=== PATIENT | male | born 1985 | race Caucasian/White ===

== ENCOUNTER 2016-10-07 06:09 | Emergency (ER) | payer SELFPAY ==
[~2016-10-07] VITALS: Ht 188 cm; Wt 84.1 kg
[~2016-10-07 06:09] MED LIST: LORA-392 PO
[2016-10-07 06:14] VITALS: BP 140/91; PULSE 61; RESP 16; TEMP 97.8; O2SAT 99
[2016-10-07 06:23] VITALS: BP 140/91; PULSE 61; RESP 16; TEMP 97.8
[2016-10-07] MEDS ORDERED: BUPR8SUB SL (06:33)
--- NOTE | 2016-10-07 06:54 | PD ---
HPI Chief Complaint: Seizure Time Seen by Provider: 06:48 Travel History International Travel<30 days: No Contact w/Intl Traveler<30days: No Traveled to known affect area: No History of Present Illness HPI 30-year-old male presents to the emergency department by private transportation the care of his his significant other for evaluation of seizure. Patient with history of seizure disorder since the age of 21. Patient states he was never identified whether he had seizure onset they caused him to have a fall or a fall that caused him to have onset of seizure at age 21. Patient used to be on carbamazepine and Klonopin but discontinued this medication at the age of 25. Patient has had no seizure activity and has been on no medications since age 25. Patient states typically if he has felt as though he might have a seizure he rests and he has not had any seizure activity. Patient states on Tuesday he had 2 episodes of seizure activity while at rest denies tongue trauma or bladder or bowel incontinence. Patient states he does occur while he was on his bed and there was no trauma. Patient reports this morning that while he was getting out of bed he felt unusual and then his significant other witnessed him having a generalized tonic-clonic seizure of approximately 1 minute duration and 30 minutes of postictal state. Patient patient again suffered no injury or fall. Patient denies any substance use or alcohol use. 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 Patient has been working out of doors and has become dehydrated. Patient denies other concerns or complaints. Patient takes no medications on a daily basis. [facility] Past Medical History Narrative Medical Asthma anxiety seizure disorder migraine; tobacco use remote IV drug use; nursing notes reviewed ADHD: No Asthma: Yes ( A CHILD) Blood Disorders: No Anxiety: Yes Cancer: No Cardiovascular Problems: No Chemotherapy: No Cerebrovascular Accident: No Diminished Hearing: No Endocrine: No GERD: Yes Headaches: Yes Immune Disorder: No Musculoskeletal: No Psychiatric: No Reproductive: No Respiratory: Yes Migraines: Yes Radiation Therapy: No Seizures: Yes Sickle Cell Disease: No Tetanus Vaccination: < 5 Years Influenza Vaccination: No Past Surgical History AICD: No Arteriovenous Shunt: No Insulin Pump: No Joint Replacement: No Pacemaker: No Other Surgery: Yes (PLASTIC SX TO FACE AT 4 YRS OLD) Social History Alcohol Use: No Tobacco Use: Yes (1/2PPD) Substance Use: Yes (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) Allergies-Medications (Allergen,Severity, Reaction): Coded Allergies: Amoxicillin (Verified Allergy, Severe, Rash, 10/07/16) Benadryl (Verified Allergy, Severe, RASH/WHEEZING, 10/07/16) Ceclor (Verified Allergy, Severe, RASH/WHEEZING, 10/07/16) Codeine (Verified Allergy, Severe, hyperactivity, 10/07/16) Keflex (Verified Allergy, Severe, Rash, 10/07/16) Penicillin (Verified Allergy, Severe, RASH, 10/07/16) Sulfa (Verified Allergy, Severe, RASH, 10/07/16) Valium (Verified Allergy, Severe, Twitching, 10/07/16) "AGGRESSIVE" Darvon (Verified Allergy, Mild, Shortness of Breath, 10/07/16) Reported Meds & Prescriptions Reported Meds & Active Scripts Active Ativan (Lorazepam) 0.5 Mg Tab 1 Tab PO Q6 NEEDED FOR ANXIETY Reported Buprenorphine (Buprenorphine HCl) 8 Mg Subl 8 Mg SL TID Review of Systems Except as stated in HPI: all other systems reviewed are Neg Physical Exam Narrative GENERAL: Well-developed well-nourished male in no acute distress no respiratory distress; GCS 15 SKIN: Warm and dry. HEAD: Atraumatic. Normocephalic. EYES: Pupils equal and round. No scleral icterus. No injection or drainage. ENT: No nasal bleeding or discharge. Mucous membranes pink and moist. NECK: Trachea midline. No JVD. CARDIOVASCULAR: Regular rate and rhythm. RESPIRATORY: No accessory muscle use. Clear to auscultation. Breath sounds equal bilaterally. GASTROINTESTINAL: Abdomen soft, non-tender, nondistended. Hepatic and splenic margins not palpable. MUSCULOSKELETAL: Extremities without clubbing, cyanosis, or edema. No obvious deformities. NEUROLOGICAL: Awake and alert. No obvious cranial nerve deficits. Motor grossly within normal limits. Five out of 5 muscle strength in the arms and legs. Normal speech. PSYCHIATRIC: Appropriate mood and affect; insight and judgment normal. Data Data Last Documented VS Vital Signs Date Time Temp Pulse Resp B/P Pulse Ox O2 Delivery O2 Flow Rate FiO2 10/07/16 06:26 55 16 99 Room Air 10/07/16 06:23 97.8 140/91 Orders Complete Blood Count With Diff (10/07/16 06:48) Blood Glucose (10/07/16 06:48) Ecg Monitoring (10/07/16 06:48) Iv Access Insert/Monitor (10/07/16 06:48) Oximetry (10/07/16 06:48) Comprehensive Metabolic Panel (10/07/16 06:48) Sodium Chloride 0.9% Flush (Ns Flush) (10/07/16 07:00) Ua Includes Microscopic (10/07/16 06:48) Sodium Chlor 0.9% 1000 Ml Inj (Ns 1000 M (10/07/16 07:00) Magnesium (Mg) (10/07/16 06:48) MDM Medical Decision Making Medical Screen Exam Complete: Yes Emergency Medical Condition: Yes Medical Record Reviewed: Yes (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
[2016-10-07] MEDS ORDERED: SODIUM CHLORIDE 0.9% FLUSH 10 ML FLUSH IVF PRN (07:00)
[2016-10-07] MEDS ORDERED: SODIUM CHLOR 0.9% 1000 ML INJ 1,000 ML IV ONE (07:00)
[2016-10-07] MEDS ORDERED: DILA100C PO (07:10)
[2016-10-07 07:16] VITALS: BP 140/84; PULSE 60; RESP 16; O2SAT 99
[2016-10-07 07:17] VITALS: RESP 16; O2SAT 99
== END 2016-10-07 07:28 | disposition home or self-care (01) ==
LOC: PHED 06:09
DX: G40.909 Epilepsy, unspecified, not intractable, without status epilepticus (principal)
CPT/HCPCS: 99283